=== PATIENT | female | born 1985 | race Caucasian/White ===

== ENCOUNTER 2017-05-12 05:43 | Inpatient (IN) | payer BC, MEDICAID ==
[~2017-05-12 05:43] MED LIST: Lactated Ringers 1,000 ML IV SCH; Sodium Chloride 0.9% 10 ML Syringe FLUSH PRN
[2017-05-12] MEDS ORDERED: Metoclopramide 10 MG/2 ML SDV IVPUSH ONE (06:00)
[2017-05-12] MEDS ORDERED: Citric Acid/Sodium Citrate Solution 30 ML Cup PO ONE (06:00)
[2017-05-12] MEDS ORDERED: Bupivacaine 0.5% 30 ML SDV ONE (06:48)
[2017-05-12] MEDS ORDERED: Morphine PF 1 MG/ML Amp ONE (06:54)
[2017-05-12] MEDS ORDERED: Oxytocin 10 Units/1 ML SDV ONE (07:20)
[2017-05-12] MEDS ORDERED: Ketorolac 30 MG/ML SDV ONE (07:20)
[2017-05-12] MEDS ORDERED: Ondansetron 4 MG/2 ML SDV ONE (07:20)
[2017-05-12] MEDS ORDERED: ceFAZolin 1 GM Vial ONE (07:20)
[2017-05-12] MEDS ORDERED: Lactated Ringers 2,000 ML ONE (07:20)
--- NOTE | 2017-05-12 07:28 | PCM.PREANE ---
Preanesthetic Assessment - Anesthesia/Transfusion/Family Hx Anesthesia History: Prior Anesthesia Reaction (nausea) Family History of Anesthesia Reaction: No Transfusion History: No Prior Transfusion(s) - Review of Systems General: No Symptoms Pulmonary: Other (cold since gi) Cardiovascular: No Symptoms Gastrointestinal: No Symptoms Neurological: No Symptoms Other: Reports: Diabetes (2) - Physical Assessment NPO Status Date: 05/11/17 NPO Status Time: 23:30 Pulse: 91 O2 Sat by Pulse Oximetry: 97 Respiratory Rate: 18 Blood Pressure: 117/77 Temperature: 98.1 F Vital Signs: Last Vital Signs Temp 98.1 F 05/12/17 06:41 Pulse 91 05/12/17 06:41 Resp 18 05/12/17 06:41 BP 117/77 05/12/17 06:41 Pulse Ox 97 05/12/17 06:41 Height: 5 ft 9 in Weight: 107.683 kg ASA Class: 2 Mental Status: Alert & Oriented x3 Airway Class: Mallampati = 1 Dentition: Reports: Normal Dentition Thyro-Mental Finger Breadths: 3 Mouth Opening Finger Breadths: 3 ROM/Head Extension: Full Lungs: Clear to Auscultation, Normal Respiratory Effort Cardiovascular: Regular Rate, Regular Rhythm - Lab Values: Laboratory Last Values WBC 9.64 K/mm3 (3.98-10.04) 05/09/17 15:47 RBC 4.77 M/mm3 (3.98-5.22) 05/09/17 15:47 Hgb 14.9 gm/L (11.2-15.7) 05/09/17 15:47 Hct 42.0 % (34.1-44.9) 05/09/17 15:47 MCV 88.1 fl (79.4-94.8) 05/09/17 15:47 MCH 31.2 pg (25.6-32.2) 05/09/17 15:47 MCHC 35.5 g/dl (32.2-35.5) 05/09/17 15:47 RDW Std Deviation 43.5 fL (36.4-46.3) 05/09/17 15:47 Plt Count 211 K/mm3 (182-369) 05/09/17 15:47 MPV 9.3 fl (9.4-12.3) L 05/09/17 15:47 Neut % (Auto) 64.7 % (34.0-71.1) 05/09/17 15:47 Lymph % (Auto) 25.4 % (19.3-51.7) 05/09/17 15:47 [place] % (Auto) 7.6 % (4.7-12.5) 05/09/17 15:47 Eos % (Auto) 1.9 (0.7-5.8) 05/09/17 15:47 Baso % (Auto) 0.3 % (0.1-1.2) 05/09/17 15:47 Neut # (Auto) 6.24 K/mm3 (1.56-6.13) H 05/09/17 15:47 Lymph # (Auto) 2.45 K/mm3 (1.18-3.74) 05/09/17 15:47 [place] # (Auto) 0.73 K/mm3 (0.24-0.36) H 05/09/17 15:47 Eos # (Auto) 0.18 K/mm3 (0.04-0.36) 05/09/17 15:47 Baso # (Auto) 0.03 K/mm3 (0.01-0.08) 05/09/17 15:47 Blood Type A POSITIVE 05/09/17 15:47 Gel Antibody Screen Negative 05/09/17 15:47 FBS 143 - Allergies Allergies/Adverse Reactions: Allergies Allergy/AdvReac Type Severity Reaction Status Date / Time clindamycin Allergy Rash Verified 05/12/17 06:16 - Blood Blood Available: No - Acknowledgements Anesthesia Type Planned: Spinal Pt an Appropriate Candidate for the Planned Anesthesia: Yes Alternatives and Risks of Anesthesia Discussed w Pt/Guardian: Yes Pt/Guardian Understands and Agrees with Anesthesia Plan: Yes PreAnesthesia Questionnaire HEENT History: Reports: Other (See Below) (glasses) Cardiovascular History: Reports: None Respiratory History: Reports: SOB Gastrointestinal History: Reports: None STATE MANAGER History: Reports: , Other (See Below) : 4 Para: 2 (39 weeks) Other OB/BYN History: previous c/s x 2 Musculoskeletal History: Reports: Back Pain, Chronic Endocrine/Metabolic History: Reports: Diabetes, Type II, Obesity/BMI 30+ - Past Surgical History HEENT Surgical History: Reports: Tonsillectomy Female Surgical History: Reports: Section Musculoskeletal Surgical History: Reports: Carpal Tunnel Other Musculoskeletal Surgeries/Procedures:: Laminectomy discectomy 2016, carpal tunnel 2003. - SUBSTANCE USE Smoking Status *Q: Former Smoker (quit 2 years ago) Second Hand Smoke Exposure: No Days Per Week of Alcohol Use: 0 Recreational Drug Use History: No - HOME MEDS Home Medications: Home Meds Albuterol [Proventil HFA] 1 - 2 puff INH Q4H PRN 05/12/17 [History] Budesonide/Formoterol Fumarate [Symbicort 160-4.5 Mcg Inhaler] 2 puff INH BID [History] Cyclobenzaprine [Flexeril] 5 mg PO TID 05/12/17 [History] Insulin Detemir [Levemir] 16 unit SUBCUT BEDTIME 05/12/17 [History] Vit W-Ca,Fe,FA(<1 mg) [ Vitamins] 1 tab PO DAILY 05/12/17 [ History] metFORMIN [Glucophage] 1,000 mg PO BID 05/12/17 [History] - CURRENT (IN HOUSE) MEDS Current Meds: Current Medications Cefazolin Sodium/Dextrose 2 gm (/ Premix) 50 mls @ 100 mls/hr IV ONETIME ONE Stop: 05/12/17 08:29 Lactated Ringer's (Ringers, Lactated) 1,000 mls @ 125 mls/hr IV ASDIRECTED [facility] Last Admin: 05/12/17 06:32 Dose: 125 mls/hr Oxytocin/Lactated Ringer's (Pitocin In Lr 10 Units/1,000 Ml) 10 unit in 1,000 mls @ 100 mls/hr IV ASDIRECTED [facility] Sodium Chloride (Saline Flush) 10 ml FLUSH ASDIRECTED PRN PRN Reason: Keep Vein Open Discontinued Medications Bupivacaine HCl (Marcaine 0.5%) Confirm Administered Dose 30 ml .ROUTE .STK-MED ONE Stop: 05/12/17 06:49 Cefazolin Sodium (Ancef) Confirm Administered Dose 2 gm .ROUTE .STK-MED ONE Stop: 05/12/17 07:21 Citric Acid/Sodium Citrate (Bicitra Solution) 30 ml PO ONETIME ONE Stop: 05/12/17 06:01 Lactated Ringer's (Ringers, Lactated) Confirm Administered Dose 2,000 mls @ as directed .ROUTE .STK-MED ONE Stop: 05/12/17 07:21 Ketorolac Tromethamine (Toradol) Confirm Administered Dose 30 mg .ROUTE .STK- MED ONE Stop: 05/12/17 07:21 Metoclopramide HCl (Reglan) 10 mg IVPUSH ONETIME ONE Stop: 05/12/17 06:01 Morphine Sulfate (Duramorph Pf) Confirm Administered Dose 1 mg .ROUTE .STK-MED ONE Stop: 05/12/17 06:55 Ondansetron HCl (Zofran) Confirm Administered Dose 4 mg .ROUTE .STK-MED ONE Stop: 05/12/17 07:21 Oxytocin (Pitocin) Confirm Administered Dose 10 unit .ROUTE .STK-MED ONE Stop: 05/12/17 07:21
[2017-05-12] MEDS ORDERED: ceFAZolin 2 GM in Premix Bag 1 BAG IV ONE (08:00)
[2017-05-12] MEDS ORDERED: Oxytocin/Lactated Ringers 10 UNIT/1,000 ML BAG IV SCH (08:00)
[2017-05-12] MEDS ORDERED: diphenhydrAMINE 50 MG/ML SDV IVPUSH PRN ×2 (08:03→10:24)
[2017-05-12] MEDS ORDERED: Meperidine PF 50 MG/ML Syringe IVPUSH PRN (08:03)
[2017-05-12] MEDS ORDERED: Ondansetron 4 MG/2 ML SDV IVPUSH PRN (08:03)
[2017-05-12] MEDS ORDERED: ePHEDrine 50 MG/ML SDV IVPUSH PRN ×2 (08:03→10:24)
[2017-05-12] MEDS ORDERED: fentaNYL 100 MCG/2 ML SDV IVPUSH PRN (08:03)
[2017-05-12] MEDS ORDERED: Albuterol 0.083% 2.5 MG/3 ML Neb Soln NEB ONE (08:03)
--- NOTE | 2017-05-12 09:08 | PCM.POSTAN ---
POST ANESTHESIA ASSESSMENT - MENTAL STATUS Mental Status: Alert, Oriented - VITAL SIGNS Pulse Rate: 75 SaO2: 96 Resp Rate: 12 Blood Pressure: 117/81 Temperature: 98 F - RESPIRATORY Respiratory Status: Respiratory Rate WNL, Airway Patent, O2 Saturation Stable, Supplemental Oxygen - CARDIOVASCULAR CV Status: Pulse Rate WNL, Blood Pressure Stable - GASTROINTESTINAL GI Status: No Symptoms - PAIN Pain Score: 0 - POST OP HYDRATION Hydration Status: Adequate & Stable
--- NOTE | 2017-05-12 09:19 | PCM.OPNOTE ---
- General Post-Op/Procedure Note Date of Surgery/Procedure: 05/12/17 Operative Procedure(s): repeat section Findings: Very thin lower uterine segment. Significant scarring of fascia and rectus muscles. Thick peritoneal scarring. Viable female. Weight 8#1oz, APGARS 6/6/7. Pre Op Diagnosis: Prior . Type II diabetes Post-Op Diagnosis: Same Anesthesia Technique: Spinal Primary Surgeon: Chelsey Reynoso Anesthesia Provider: Dragan Adan Mangle Tender: Mary Castle Pathology: none Fluid Replacement, Intraop: 2,100 Output, Urine Amount: 50 EBL in mLs: 700 Complications: None Condition: Good Free Text/Narrative:: The patient was taken to the operating room where epidural anesthesia was dosed to surgical levels without difficulty. The patient was prepped and draped in the usual sterile fashion in the dorsal supine position with a leftward tilt. A Pfannenstiel skin incision was made with the scalpel and carried through to the underlying layer of fascia. The fascia was incised in the midline and extended laterally using Mccauley scissors. Wendi clamps were used to elevate the superior aspect of the fascial incision, which was elevated, and the underlying rectus muscles were dissected off bluntly and using Mccauley scissors. Attention was then turned to the inferior aspect of the fascial incision, which in similar fashion was grasped with Wendi clamps, elevated, and the underlying rectus muscles were dissected off bluntly and using the mccauley. The rectus muscles were dissected in the midline. The peritoneum was entered bluntly; this incision was extended superiorly and inferiorly with good visualization of the bladder. The bladder blade was inserted. The vesicouterine peritoneum was identified and entered sharply using Metzenbaum scissors. This incision was extended laterally and the bladder flap was created digitally. The bladder blade was reinserted. The lower uterine segment was incised in a transverse fashion using the scalpel and with digital traction. Clear fluid was noted. The was subsequently delivered by flexing the head to the incision. Body and shoulders followed without difficulty. The cord was clamped and cut. The was subsequently handed to the awaiting community liaison officer whose presence had been requested.. The placenta was delivered spontaneously intact with a three-vessel cord noted. The uterus was exteriorized and cleared of all clots and debris. The uterine incision was repaired in 2 layers using 0 monocryl. Hemostasis was visualized. Hemostasis was visualized bilaterally. The uterus was returned to the abdomen. The uterine incision was reexamined and it was noted to be hemostatic. The pelvis was copiously irrigated. The fascia was closed with 1 PDS suture, and the skin was closed with 3-0 monocryl. Sponge, lap, and instrument counts were correct x2. The patient was stable at the completion of the procedure and was subsequently transferred to the recovery room in stable condition.
[2017-05-12] MEDS ORDERED: Docusate Sodium 100 MG Cap PO PRN (10:24)
[2017-05-12] MEDS ORDERED: Naloxone 0.4 MG/ML SDV IVPUSH PRN (10:24)
[2017-05-12] MEDS ORDERED: Lanolin 100% Cream 7 GM Tube TOP PRN (10:24)
[2017-05-12] MEDS ORDERED: Dextrose 5%-Lactated Ringers 1,000 ML IV SCH (10:24)
[2017-05-12] MEDS: Ketorolac 30 MG/ML SDV IVPUSH SCH ×2 (13:32→20:10)
[2017-05-12] MEDS ORDERED: INSULIN DETEMIR 100 UNIT/ML SUBCUT ONE (21:00)
[2017-05-12] MEDS: metFORMIN 500 MG Tab PO SCH (21:33)
[2017-05-13] MEDS: Ketorolac 30 MG/ML SDV IVPUSH SCH (02:00)
[2017-05-13] MEDS: Acetaminophen/oxyCODONE 325-5 MG Tab PO PRN ×3 (05:17→20:12)
--- NOTE | 2017-05-13 12:31 | PCM48HPAN ---
Post Anesthesia Note - EVALUATION WITHIN 48HRS OF ANESTHETIC Vital Signs in Normal Range: Yes Patient Participated in Evaluation: Yes Respiratory Function Stable: Yes Airway Patent: Yes Cardiovascular Function Stable: Yes Hydration Status Stable: Yes Pain Control Satisfactory: Yes Nausea and Vomiting Control Satisfactory: Yes Mental Status Recovered: Yes
--- NOTE | 2017-05-13 13:07 | PCM.PNPP ---
- General Info Date of Service: 05/13/17 Subjective Update: POD1 Doing well No complaints. Pain controlled. On 1/2 prior insulin. Functional Status: Reports: Pain Controlled - Review of Systems General: Reports: No Symptoms HEENT: Reports: No Symptoms Pulmonary: Reports: No Symptoms Cardiovascular: Reports: No Symptoms Gastrointestinal: Reports: No Symptoms Genitourinary: Reports: No Symptoms Musculoskeletal: Reports: No Symptoms Skin: Reports: No Symptoms Neurological: Reports: No Symptoms Psychiatric: Reports: No Symptoms - General Info Date of Service: 05/13/17 - Patient Data Vital Signs - Most Recent: Last Vital Signs Temp 36.2 C 05/13/17 11:10 Pulse 77 05/13/17 11:10 Resp 16 05/13/17 11:10 BP 117/72 05/13/17 11:10 Pulse Ox 95 05/13/17 11:10 Weight - Most Recent: 107.683 kg I&O - Last 24 Hours: Intake & Output 05/12/17 05/13/17 05/13/17 22:59 06:59 14:59 Intake Total 1750 Output Total 550 1000 300 Balance 1200 -1000 -300 Lab Results - Last 24 Hours: Laboratory Results - last 24 hr 05/12/17 05/13/17 Range/Units 16:06 06:40 WBC 9.27 (3.98-10.04) K/mm3 RBC 4.03 (3.98-5.22) M/mm3 Hgb 12.5 (11.2-15.7) gm/L Hct 36.4 (34.1-44.9) % MCV 90.3 (79.4-94.8) fl MCH 31.0 (25.6-32.2) pg MCHC 34.3 (32.2-35.5) g/dl RDW Std Deviation 44.2 (36.4-46.3) fL Plt Count 157 L (182-369) K/mm3 MPV 9.1 L (9.4-12.3) fl Neut % (Auto) 62.8 (34.0-71.1) % Lymph % (Auto) 25.7 (19.3-51.7) % [place] % (Auto) 9.0 (4.7-12.5) % Eos % (Auto) 2.0 (0.7-5.8) Baso % (Auto) 0.3 (0.1-1.2) % Neut # (Auto) 5.82 (1.56-6.13) K/mm3 Lymph # (Auto) 2.38 (1.18-3.74) K/mm3 [place] # (Auto) 0.83 H (0.24-0.36) K/mm3 Eos # (Auto) 0.19 (0.04-0.36) K/mm3 Baso # (Auto) 0.03 (0.01-0.08) K/mm3 POC Glucose 206 H (70-105) mg/dL Med Orders - Current: Current Medications Diphenhydramine HCl (Benadryl) 25 mg IVPUSH Q6H PRN PRN Reason: Itching or Nausea Docusate Sodium (Colace) 100 mg PO Q12H PRN PRN Reason: Constipation Emollient Ointment (Lansinoh Hpa) 0 gm TOP ASDIRECTED PRN PRN Reason: Sore Nipples Ephedrine Sulfate (Ephedrine Sulfate) 5 mg IVPUSH SEECOMMENT PRN PRN Reason: Other Ibuprofen (Motrin) 600 mg PO Q6H PRN PRN Reason: mild pain or fever Metformin HCl (Glucophage) 1,000 mg PO BEDTIME [facility] Last Admin: 05/12/17 21:33 Dose: 1,000 mg Naloxone HCl (Narcan) 0.1 mg IVPUSH SEECOMMENT PRN PRN Reason: Respiratory Depression Oxycodone/Acetaminophen (Percocet 325-5 Mg) 2 tab PO Q6H PRN PRN Reason: Pain (moderate 4-6) Last Admin: 05/13/17 05:17 Dose: 2 tab Discontinued Medications Albuterol (Proventil Neb Soln) 2.5 mg NEB ONETIME ONE Stop: 05/12/17 08:04 Last Admin: 05/12/17 09:38 Dose: Not Given Bupivacaine HCl (Marcaine 0.5%) Confirm Administered Dose 30 ml .ROUTE .STK-MED ONE Stop: 05/12/17 06:49 Last Admin: 05/12/17 08:14 Dose: 20 ml Cefazolin Sodium (Ancef) Confirm Administered Dose 2 gm .ROUTE .STK-MED ONE Stop: 05/12/17 07:21 Citric Acid/Sodium Citrate (Bicitra Solution) 30 ml PO ONETIME ONE Stop: 05/12/17 06:01 Last Admin: 05/12/17 07:35 Dose: 30 ml Diphenhydramine HCl (Benadryl) 25 mg IVPUSH Q6H PRN PRN Reason: pruritis Ephedrine Sulfate (Ephedrine Sulfate) 5 mg IVPUSH ASDIRECTED PRN PRN Reason: Hypotension Fentanyl (Sublimaze) 50 mcg IVPUSH Q5M PRN PRN Reason: Pain Cefazolin Sodium/Dextrose 2 gm (/ Premix) 50 mls @ 100 mls/hr IV ONETIME ONE Stop: 05/12/17 08:29 Last Admin: 05/12/17 22:09 Dose: Not Given Lactated Ringer's (Ringers, Lactated) 1,000 mls @ 125 mls/hr IV ASDIRECTED [facility] Last Admin: 05/12/17 06:32 Dose: 125 mls/hr Oxytocin/Lactated Ringer's (Pitocin In Lr 10 Units/1,000 Ml) 10 unit in 1,000 mls @ 100 mls/hr IV ASDIRECTED [facility] Lactated Ringer's (Ringers, Lactated) Confirm Administered Dose 2,000 mls @ as directed .ROUTE .STK-MED ONE Stop: 05/12/17 07:21 Dextrose/Lactated Ringer's (Dextrose 5%-Lactated Ringers) 1,000 mls @ 125 mls/ hr IV ASDIRECTED [facility] Stop: 05/12/17 18:23 Last Admin: 05/12/17 11:11 Dose: 125 mls/hr Insulin Detemir (Levemir) 0 unit SUBCUT ONETIME ONE Stop: 05/12/17 21:01 Last Admin: 05/12/17 21:34 Dose: 8 units Ketorolac Tromethamine (Toradol) Confirm Administered Dose 30 mg .ROUTE .STK- MED ONE Stop: 05/12/17 07:21 Ketorolac Tromethamine (Toradol) 30 mg IVPUSH Q6H [facility] Stop: 05/13/17 01:31 Last Admin: 05/13/17 02:00 Dose: 30 mg Meperidine HCl (Demerol) 12.5 mg IVPUSH ONETIME PRN PRN Reason: shivering Metoclopramide HCl (Reglan) 10 mg IVPUSH ONETIME ONE Stop: 05/12/17 06:01 Last Admin: 05/12/17 07:30 Dose: 10 mg Morphine Sulfate (Duramorph Pf) Confirm Administered Dose 1 mg .ROUTE .STK-MED ONE Stop: 05/12/17 06:55 Ondansetron HCl (Zofran) Confirm Administered Dose 4 mg .ROUTE .STK-MED ONE Stop: 05/12/17 07:21 Ondansetron HCl (Zofran) 4 mg IVPUSH ONETIME PRN PRN Reason: Nausea/Vomiting Oxytocin (Pitocin) Confirm Administered Dose 10 unit .ROUTE .STK-MED ONE Stop: 05/12/17 07:21 Sodium Chloride (Saline Flush) 10 ml FLUSH ASDIRECTED PRN PRN Reason: Keep Vein Open - Interaction Support Person: Significant Other - Recovery Exam Fundal Tone: Firm Fundal Level: At Umbilicus Fundal Placement: Midline Lochia Amount: Small Lochia Color: Rubra/Red Perineum Description: Intact, Minimal Bruising/Swelling Episiotomy/Laceration: None Bladder Status: Voiding Urinary Elimination: Indwelling Catheter - Exam General: Alert, Oriented HEENT: Pupils Equal Neck: Supple Lungs: Clear to Auscultation, Normal Respiratory Effort Cardiovascular: Regular Rate, Regular Rhythm GI/Abdominal Exam: Normal Bowel Sounds, Soft, Non-Tender, No Organomegaly, No Distention, No Abnormal Bruit, No Mass, Pelvis Stable Extremities: Normal Inspection, Normal Range of Motion, Non-Tender, No Pedal Edema, Normal Capillary Refill Skin: Warm, Dry, Intact Wound/Incisions: Healing Well Neurological: No New Focal Deficit Psy/Mental Status: Alert, Normal Affect, Normal Mood - Problem List Review Problem List Initiated/Reviewed/Updated: Yes - My Orders Last 24 Hours: My Active Orders 05/12/17 21:00 metFORMIN [Glucophage] 1,000 mg PO BEDTIME 05/13/17 07:30 Ibuprofen [Motrin] 600 mg PO Q6H PRN - Assessment Assessment:: POD1 Continue levamir and metformin Routine postop care Probable discharge tomorrow. Will sign out to Dr. Saleem this evening.
[2017-05-13] MEDS: metFORMIN 500 MG Tab PO SCH (20:12)
[2017-05-13] MEDS ORDERED: Insulin Detemir 100 Units/ML 3 ML Pen SUBCUT SCH (21:00)
[2017-05-14] MEDS: Ibuprofen 600 MG Tab PO PRN ×2 (01:00→07:42)
[2017-05-14] MEDS: Acetaminophen/oxyCODONE 325-5 MG Tab PO PRN ×2 (02:56→09:05)
[2017-05-14 05:50] VITALS: BP 124/73
[2017-05-14] MEDS ORDERED: metFORMIN 500 MG Tab PO SCH (07:00)
[2017-05-14] MEDS ORDERED: Lidocaine 1% 50 ML MDV ONE (09:39)
[2017-05-14] MEDS ORDERED: Lidocaine 1% 10 ML MDV INJECT ONE (10:08)
--- NOTE | 2017-05-14 11:57 | PCM.SN ---
- Free Text/Narrative Note: Post Operative Progress Note POD # 2 Subjective: Doing well overall. Ambulating without difficulty. Lochia minimal. Voiding without difficulty. Passing flatus. Tolerating , controlled without nausea or vomiting. Pain controlled with oral medications. Breast and bottle feeding with minimal difficulty. Objective: Vitals: Vital Signs - 24 hr 18 18 05/14/17 20:17 04:00 04:26 Temperature 36.7 C Temperature [ 36.6 C Temporal] Pulse, 79 79 Peripheral Respiratory 16 16 Rate Blood Pressure 123/72 124/73 O2 Sat by Pulse 95 92 L Oximetry Physical Exam General: Alert and oriented, no acute distress Lungs: Clear to auscultation bilaterally Heart: Regular rate and rhythm Abdomen: Soft, minimal appropriate tenderness, non-distended, fundus midline, nontender and below the umbilicus Incision: With small amount of bleeding near the right edge of incision measuring approximately 6-7 cm with separation of the incision. Healthy subcutaneous tissue with small amount of bleeding from this tissue, remainder of incision intact with Steri-Strips in place, small amount of bruising on the mons, no erythema or purulent discharge present. Extremities: 1+ edema in lower extremities to shins bilaterally Procedure: The patient was placed in supine position and the Steri-Strips were removed from the incision. The incision was then opened along the length of the incision where the incision had previously been . The total length that was able to be opened was approximately 6-7 cm. The open wound was examined and noted to have well-healing tissue. There is a small amount of bleeding from the subcutaneous tissue. [place] that this was due to failure of the suture for the separation and that this could be reapproximated using gila. The incision was then irrigated using sterile saline. The wound was then cleaned with Betadine wipes 3. The skin incision was then injected with 10 mL of 1% lidocaine for anesthesia. The incision was then closed using gila. ASSESSMENT: 32-year-old female G 4 P 3013 s/p repeat section POD #2 for history of section, complicated by type 2 diabetes controlled with Levemir and metformin PLAN: Doing well Breast and bottle feeding with minimal difficulty. Assist as needed Incision with separation as per above. Continue to keep clean and dry. Recommended for patient to be seen on 05/17/2017, with Dr. Reynoso for evaluation of incision for healing Lochia minimal. Continue to monitor for appropriate lochia. Continue routine post-operative care Patient to continue with Levemir 8 units at night and metformin. Anticipate discharge home today Abbe Saleem MD 11:56 AM 05/14/2017
--- NOTE | 2017-05-14 12:02 | PCM.DCSUM1 ---
Discharge Summary - Hospital Course Free Text/Narrative:: - General Post-Op/Procedure Note Date of Surgery/Procedure: 05/12/17 Operative Procedure(s): repeat section Findings: Very thin lower uterine segment. Significant scarring of fascia and rectus muscles. Thick peritoneal scarring. Viable female. Weight 8#1oz, APGARS 6/6/7. Pre Op Diagnosis: Prior . Type II diabetes Post-Op Diagnosis: Same Anesthesia Technique: Spinal Primary Surgeon: Chelsey Reynoso Anesthesia Provider: Dragan Adan Pickle Water Pump Operator: Mary Castle Pathology: none Fluid Replacement, Intraop: 2,100 Output, Urine Amount: 50 EBL in mLs: 700 Complications: None Condition: Good HPI Initial Comments: - General Post-Op/Procedure Note Date of Surgery/Procedure: 05/12/17 Operative Procedure(s): repeat section Findings: Very thin lower uterine segment. Significant scarring of fascia and rectus muscles. Thick peritoneal scarring. Viable female. Weight 8#1oz, APGARS 6/6/7. Pre Op Diagnosis: Prior . Type II diabetes Post-Op Diagnosis: Same Anesthesia Technique: Spinal Primary Surgeon: Chelsey Reynoso Anesthesia Provider: Dragan Adan Pickle Water Pump Operator: Mary Castle Pathology: none Fluid Replacement, Intraop: 2,100 Output, Urine Amount: 50 EBL in mLs: 700 Complications: None Condition: Good Brief History: - General Post-Op/Procedure Note. Date of Surgery/Procedure: 11/19. Operative Procedure(s): repeat section. Findings: Very thin lower uterine segment. Significant scarring of fascia and rectus muscles. Thick peritoneal scarring. Viable female. Weight 8#1oz, APGARS 6/6/7. Pre Op Diagnosis: Prior . Type II diabetes. Post-Op Diagnosis: Same. Anesthesia Technique: Spinal. Primary Surgeon: Chelsey Reynoso. Anesthesia Provider: Dragan Adan. Pickle Water Pump Operator: Mary Castle. Pathology: none. Fluid Replacement, Intraop: 2,100. Output, Urine Amount: 50. EBL in mLs : 700. Complications: None. Condition: Good - Discharge Data Discharge Date: 05/14/17 Discharge Disposition: Home, Self-Care 01 Condition: Good - Discharge Diagnosis/Problem(s) (1) 39 weeks gestation of SNOMED Code(s): 47651575 ICD Code: Z3A.39 - 39 WEEKS GESTATION OF Status: Acute (2) Status post repeat low transverse section SNOMED Code(s): 243449197, 853205594, 886704447 ICD Code: Z98.891 - HISTORY OF UTERINE SCAR FROM PREVIOUS SURGERY Status: Acute (3) Type 2 diabetes mellitus SNOMED Code(s): 90221412 ICD Code: E11.9 - TYPE 2 DIABETES MELLITUS WITHOUT COMPLICATIONS Status: Acute (4) Separation of wound with drainage, SNOMED Code(s): 748970532 ICD Code: O90.0 - DISRUPTION OF DELIVERY WOUND Status: Acute - Patient Summary/Data Operative Procedure(s) Performed: repeat section Complications: Right-sided incision wound separation with closure using gila prior to discharge Consults: None Hospital Course: Jolie Rueda was admitted for repeat section for a history of section. She was taken back to the OR and given spinal injection for anesthesia. She was given Ancef for antibiotic prophylaxis. She was prepped and draped in the normal fashion. On 05/12/2017 she had a delivery of a viable female . Apgars of 6, 6 & 7. Weight of 8 lbs 1 oz. She was closed in a normal fashion. There were no complications with the procedure. Please see the operative report for full details. Her post operative course was complicated by wound separation on POD #2. The incision appeared to be healing well and had a separation due to the suture knot coming loose or being cut. The tissue appeared to be healing well with good blood supply. The wound separation was cleansed with sterile saline and betadine and then closed with gila. Her pain was well controlled and she had minimal lochia. She was ambulating, tolerating a carb controlled diet and voiding normally. She was passing flatus and has not had a BM. She was breast and bottle feeding. She was afebrile and her hematocrit was 36.4 on POD #1. She desired to be discharged home on the morning of POD #2. Her blood type is A positive. She will follow up with Dr. Reynoso on 05/17/17 for evaluation of the incision. - Patient Instructions Diet: Diabetic Diet Activity: As Tolerated, No Lifting Over 20 Pounds Activity, Other: Nothing in the vagina for 6 weeks Driving: Do Not Drive (While taking narcotic medications) Showering/Bathing: May Shower, No Tub Bathing/Swimming (For 1 week) Wound/Incision Care: Keep Operative Site/Wound Site Clean and Dry Notify Provider of: Fever, Increased Pain, Swelling and Redness, Drainage, Nausea and/or Vomiting - Discharge Plan Prescriptions/Med Rec: Acetaminophen/oxyCODONE [Percocet 325-5 MG] 1 - 2 tab PO Q6H PRN #30 tablet PRN Reason: Pain Home Medications: Home Meds Albuterol [Proventil HFA] 1 - 2 puff INH Q4H PRN 05/12/17 [History] Budesonide/Formoterol Fumarate [Symbicort 160-4.5 Mcg Inhaler] 2 puff INH BID [History] Cyclobenzaprine [Flexeril] 5 mg PO TID 05/12/17 [History] Vit W-Ca,Fe,FA(<1 mg) [ Vitamins] 1 tab PO DAILY 05/12/17 [ History] metFORMIN [Glucophage] 1,000 mg PO BID 05/12/17 [History] Acetaminophen/oxyCODONE [Percocet 325-5 MG] 1 - 2 tab PO Q6H PRN #30 tablet 01/19 [Rx] Docusate Sodium [Colace] 100 mg PO Q12H PRN cap 05/14/17 [Rx] Ibuprofen [IJD: Ibuprofen] 600 mg PO Q6H PRN tablet 05/14/17 [Rx] Insulin Detemir [Levemir] 8 unit SUBCUT BEDTIME pen 05/14/17 [Rx] Lanolin [Lansinoh HPA] 1 applic TOP ASDIRECTED PRN tube 05/14/17 [Rx] Patient Handouts: , Delivery, Care After, Home Care Instructions for Mom, Eating Plan for Women Referrals: Chelsey Reynoso MD [Physician] - 05/17/17 (Follow-up with Dr. Reynoso on 05/17/2017 for wound evaluation and discussion of additional follow-up at that appointment.) - Discharge Summary/Plan Comment DC Time >30 min.: No - Patient Data Vitals - Most Recent: Last Vital Signs Temp 36.6 C 05/14/17 04:00 Pulse 79 02/10/18 04:26 Resp 16 05/14/17 04:26 BP 124/73 05/14/17 04:26 Pulse Ox 92 L 05/14/17 04:26 Weight - Most Recent: 107.683 kg I&O - Last 24 hours: Intake & Output 05/13/17 05/14/17 05/14/17 22:59 06:59 14:59 Intake Total 480 120 Balance 480 120 Med Orders - Current: Current Medications Diphenhydramine HCl (Benadryl) 25 mg IVPUSH Q6H PRN PRN Reason: Itching or Nausea Docusate Sodium (Colace) 100 mg PO Q12H PRN PRN Reason: Constipation Last Admin: 05/14/17 07:42 Dose: 100 mg Emollient Ointment (Lansinoh Hpa) 0 gm TOP ASDIRECTED PRN PRN Reason: Sore Nipples Ephedrine Sulfate (Ephedrine Sulfate) 5 mg IVPUSH SEECOMMENT PRN PRN Reason: Other Ibuprofen (Motrin) 600 mg PO Q6H PRN PRN Reason: mild pain or fever Last Admin: 05/14/17 07:42 Dose: 600 mg Insulin Detemir (Levemir) 8 unit SUBCUT BEDTIME [facility] Last Admin: 05/13/17 20:49 Dose: 8 tu Metformin HCl (Glucophage) 1,000 mg PO BEDTIME [facility] Last Admin: 05/13/17 20:12 Dose: 1,000 mg Metformin HCl (Glucophage) 1,000 mg PO WITHBREAKFAST [facility] Last Admin: 05/14/17 06:37 Dose: 1,000 mg Naloxone HCl (Narcan) 0.1 mg IVPUSH SEECOMMENT PRN PRN Reason: Respiratory Depression Oxycodone/Acetaminophen (Percocet 325-5 Mg) 2 tab PO Q6H PRN PRN Reason: Pain (moderate 4-6) Last Admin: 05/14/17 09:05 Dose: 2 tab Discontinued Medications Albuterol (Proventil Neb Soln) 2.5 mg NEB ONETIME ONE Stop: 05/12/17 08:04 Last Admin: 05/12/17 09:38 Dose: Not Given Bupivacaine HCl (Marcaine 0.5%) Confirm Administered Dose 30 ml .ROUTE .STK-MED ONE Stop: 05/12/17 06:49 Last Admin: 05/12/17 08:14 Dose: 20 ml Cefazolin Sodium (Ancef) Confirm Administered Dose 2 gm .ROUTE [facility] ONE Stop: 05/12/17 07:21 Citric Acid/Sodium Citrate (Bicitra Solution) 30 ml PO ONETIME ONE Stop: 05/12/17 06:01 Last Admin: 05/12/17 07:35 Dose: 30 ml Diphenhydramine HCl (Benadryl) 25 mg IVPUSH Q6H PRN PRN Reason: pruritis Ephedrine Sulfate (Ephedrine Sulfate) 5 mg IVPUSH ASDIRECTED PRN PRN Reason: Hypotension Fentanyl (Sublimaze) 50 mcg IVPUSH Q5M PRN PRN Reason: Pain Cefazolin Sodium/Dextrose 2 gm (/ Premix) 50 mls @ 100 mls/hr IV ONETIME ONE Stop: 05/12/17 08:29 Last Admin: 05/12/17 22:09 Dose: Not Given Lactated Ringer's (Ringers, Lactated) 1,000 mls @ 125 mls/hr IV ASDIRECTED [facility] Last Admin: 05/12/17 06:32 Dose: 125 mls/hr Oxytocin/Lactated Ringer's (Pitocin In Lr 10 Units/1,000 Ml) 10 unit in 1,000 mls @ 100 mls/hr IV ASDIRECTED [facility] Lactated Ringer's (Ringers, Lactated) Confirm Administered Dose 2,000 mls @ as directed .ROUTE [facility] ONE Stop: 05/12/17 07:21 Dextrose/Lactated Ringer's (Dextrose 5%-Lactated Ringers) 1,000 mls @ 125 mls/ hr IV ASDIRECTED [facility] Stop: 05/12/17 18:23 Last Admin: 05/12/17 11:11 Dose: 125 mls/hr Insulin Detemir (Levemir) 0 unit SUBCUT ONETIME ONE Stop: 05/12/17 21:01 Last Admin: 05/12/17 21:34 Dose: 8 units Ketorolac Tromethamine (Toradol) Confirm Administered Dose 30 mg .ROUTE .STK- MED ONE Stop: 05/12/17 07:21 Ketorolac Tromethamine (Toradol) 30 mg IVPUSH Q6H [facility] Stop: 05/13/17 01:31 Last Admin: 05/13/17 02:00 Dose: 30 mg Lidocaine HCl (Xylocaine 1%) Confirm Administered Dose 50 ml .ROUTE .STK-MED ONE Stop: 05/14/17 09:40 Last Admin: 05/14/17 10:11 Dose: 10 ml Lidocaine HCl (Xylocaine 1%) 10 ml INJECT ONETIME ONE Stop: 05/14/17 10:09 Last Admin: 05/14/17 10:12 Dose: Not Given Meperidine HCl (Demerol) 12.5 mg IVPUSH ONETIME PRN PRN Reason: shivering Metoclopramide HCl (Reglan) 10 mg IVPUSH ONETIME ONE Stop: 05/12/17 06:01 Last Admin: 05/12/17 07:30 Dose: 10 mg Morphine Sulfate (Duramorph Pf) Confirm Administered Dose 1 mg .ROUTE .STK-MED ONE Stop: 05/12/17 06:55 Ondansetron HCl (Zofran) Confirm Administered Dose 4 mg .ROUTE .STK-MED ONE Stop: 05/12/17 07:21 Ondansetron HCl (Zofran) 4 mg IVPUSH ONETIME PRN PRN Reason: Nausea/Vomiting Oxytocin (Pitocin) Confirm Administered Dose 10 unit .ROUTE .STK-MED ONE Stop: 05/12/17 07:21 Sodium Chloride (Saline Flush) 10 ml FLUSH ASDIRECTED PRN PRN Reason: Keep Vein Open *Q Meaningful Use (DIS) - VTE *Q VTE Criteria *Q: - Stroke *Q Stroke Criteria *Q: - AMI *Q AMI Criteria *Q:
== END 2017-05-14 12:01 | disposition home or self-care (01) | DRG 540 ==
LOC: JD.OB 05:43
PROVIDERS: ADMIT Obstetrics & Gynecology; ATTEND Obstetrics & Gynecology
PROC: 10D00Z1 Extraction of Products of Conception, Low, Open Approach (ICD-10-PCS; principal; 2017-05-12)
DX: O34.211 Maternal care for low transverse scar from previous cesarean delivery (principal); N85.8 Other specified noninflammatory disorders of uterus; O24.12 Pre-existing type 2 diabetes mellitus, in childbirth; E11.9 Type 2 diabetes mellitus without complications; Z3A.39 39 weeks gestation of pregnancy; Z37.0 Single live birth; Z88.1 Allergy status to other antibiotic agents; Z79.84 Long term (current) use of oral hypoglycemic drugs; Z87.891 Personal history of nicotine dependence; Z79.4 Long term (current) use of insulin
CPT/HCPCS: 01961; 36415; 82962; 85025; 86850; 86900; 86901; 94762; A9270-GY; J0690; J1815-GY; J1885; J2274; J2405; J2590; J2765; J7042; J7120

== ENCOUNTER 2019-06-24 11:11 | Emergency (ER) | payer BC, MEDICAID ==
--- NOTE | 2019-06-24 11:53 | EDM.PDOC ---
ED HPI GENERAL MEDICAL PROBLEM - General Chief Complaint: Respiratory Problem Stated Complaint: PNEUMONIA SENT BY WALK IN Time Seen by Provider: 06/24/19 11:53 - History of Present Illness INITIAL COMMENTS - FREE TEXT/NARRATIVE: 34-year-old female sent over from the walk-in clinic with worsening pneumonia. Was seen in clinic on the diagnosed with early pneumonia started on doxycycline and prednisone and is not getting better she is not certain what dose of prednisone she was started on the patient has a history of type 2 diabetes and her blood sugars are going up her usual blood sugars in the morning are around 100 this morning was 200 it was 407 at the walk-in clinic. She had a CBC done which showed an elevated white count of 15,000 range no manual differential was done on this but the automated segmented WBCs was elevated. She had no laboratory evidence of dehydration her basic metabolic panel was otherwise unremarkable other than a glucose. Repeat chest x-ray was done today which is consistent with a developing pneumonia. Chest Pain Score (Numeric/FACES): 9 - Related Data Allergies Allergy/AdvReac Type Severity Reaction Status Date / Time clindamycin Allergy Rash Verified 06/24/19 11:23 Home Meds: Home Meds Albuterol [Proventil HFA] 1 - 2 puff INH Q4H PRN 05/12/17 [History] Budesonide/Formoterol Fumarate [Symbicort 160-4.5 Mcg Inhaler] 2 puff INH BID [History] Cyclobenzaprine [Flexeril] 5 mg PO TID 05/12/17 [History] metFORMIN [Glucophage] 1,000 mg PO BID 05/12/17 [History] Acetaminophen/oxyCODONE [Percocet 325-5 MG] 1 - 2 tab PO Q6H PRN #30 tablet 01/19 [Rx] Ibuprofen [IJD: Ibuprofen] 600 mg PO Q6H PRN tablet 05/14/17 [Rx] Insulin Detemir [Levemir] 8 unit SUBCUT BEDTIME pen 05/14/17 [Rx] Cefuroxime Axetil [Ceftin] 500 mg PO Q12H #18 tablet 06/24/19 [Rx] Doxycycline [Vibramycin] 100 mg PO BID 06/24/19 [History] Multivitamin [Multivitamins] 1 cap PO DAILY 03/22/20 [History] Norgestimate-Ethinyl Estradiol [Ortho Tri-Cyclen 28 Tablet] 1 tab PO DAILY 06/23 [History] Semaglutide [Ozempic] 1 mg SQ ASDIRECTED 06/24/19 [History] Sertraline [Zoloft] 25 mg PO DAILY 06/24/19 [History] Past Medical History HEENT History: Reports: Impaired Vision, Other (See Below) Cardiovascular History: Reports: None Respiratory History: Reports: SOB, Other (See Below) Other Respiratory History: PNA Gastrointestinal History: Reports: None 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 Social & Family History - Family History Family Medical History: Noncontributory - Tobacco Use Smoking Status *Q: Former Smoker Used Tobacco, but Quit: Yes Month/Year Tobacco Last Used: 2017 - Caffeine Use Caffeine Use: Reports: Coffee - Recreational Drug Use Recreational Drug Use: No ED ROS GENERAL - Review of Systems Review Of Systems: See Below Constitutional: Reports: Fever HEENT: Reports: No Symptoms Respiratory: Reports: Cough, Sputum Cardiovascular: Reports: No Symptoms Endocrine: Reports: No Symptoms GI/Abdominal: Reports: No Symptoms : Reports: No Symptoms ED EXAM, GENERAL - Physical Exam Exam: See Below Exam Limited By: No Limitations General Appearance: Alert, No Apparent Distress Eye Exam: Bilateral Eye: Normal Inspection Ears: Normal External Exam, Normal Canal, Hearing Grossly Normal, Normal TMs Nose: Normal Inspection, Normal Mucosa, No Blood Throat/Mouth: Normal Inspection, Normal Lips, Normal Teeth, Normal Gums, Normal Oropharynx, Normal Voice, No Airway Compromise Head: Atraumatic, Normocephalic Neck: Normal Inspection, Supple, Non-Tender, Full Range of Motion. No: Lymphadenopathy (L), Lymphadenopathy (R) Respiratory/Chest: No Respiratory Distress, Lungs Clear, Normal Breath Sounds Cardiovascular: Regular Rate, Rhythm, No Edema, No Murmur GI/Abdominal: Normal Bowel Sounds, Soft, Non-Tender Back Exam: Normal Inspection, Full Range of Motion. No: CVA Tenderness (L), CVA Tenderness (R) Extremities: Normal Inspection, Non-Tender Neurological: Alert, Oriented, Normal Cognition Psychiatric: Normal Affect, Normal Mood Course - Vital Signs Last Recorded V/S: Last Vital Signs Temp 36.2 C 06/24/19 11:20 Pulse 95 06/24/19 11:20 Resp 19 06/24/19 11:20 BP 129/95 H 06/24/19 11:20 Pulse Ox 97 06/24/19 11:20 - Orders/Labs/Meds Orders: Active Orders 24 hr Category Date Time Status CULTURE BLOOD [BC] Stat Lab 06/24/19 12:30 Received CULTURE BLOOD [BC] Stat Lab 06/24/19 12:38 Received cefTRIAXone [Rocephin] 2 gm Med 06/24/19 12:45 Active Sodium Chloride 0.9% [Normal Saline] 100 ml IV Q24H Blood Culture x2 Reflex Set [OM.PC] Stat Oth 06/24/19 12:14 Ordered Isolation [COMM] Routine Oth 06/24/19 12:17 Ordered Medication Orders Ceftriaxone Sodium 2 gm/ (Sodium Chloride) 100 mls @ 200 mls/hr IV Q24H JAMAL Last Admin: 06/24/19 12:46 Dose: 200 mls/hr Labs: Laboratory Tests 06/24/19 Range/Units 12:10 Urine Color Yellow (Yellow) Urine Appearance Clear (Clear) Urine pH 6.0 (5.0-8.0) Ur Specific [place] > or = 1.030 (1.005-1.030) Urine Protein Negative (Negative) Urine Glucose (UA) 2+ H (Negative) Urine Ketones 1+ H (Negative) Urine Occult Blood Negative (Negative) Urine Nitrite Negative (Negative) Urine Bilirubin Negative (Negative) Urine Urobilinogen 0.2 (0.2-1.0) Ur Leukocyte Esterase Negative (Negative) Urine RBC Not seen (0-5) /hpf Urine WBC Not seen (0-5) /hpf Ur Squamous Epith Cells 0-5 (0-5) /hpf Urine Bacteria Not seen (FEW) /hpf Urine Mucus Few (FEW) /hpf Meds: Medications Generic Name Dose Route Start Last Admin Trade Name Bereket PRN Reason Stop Dose Admin Ceftriaxone Sodium 2 gm/ 100 mls @ 200 mls/hr 06/24/19 12:45 06/24/19 12:46 Sodium Chloride IV 200 mls/hr Q24H JAMAL Administration Discontinued Medications Generic Name Dose Route Start Last Admin Trade Name Bereket PRN Reason Stop Dose Admin Ceftriaxone Sodium 2 gm/ 100 mls @ 200 mls/hr 06/24/19 12:15 06/24/19 12:40 Sodium Chloride IV 06/24/19 12:44 Not Given ONETIME ONE - Re-Assessments/Exams Free Text/Narrative Re-Assessment/Exam: 06/24/19 12:32 Patient will be started on a liter of NS and given 2 g of Rocephin and will be treated as an outpatient with Ceftin 500 mg twice daily starting tomorrow she has finished her prednisone which was 20 mg twice a day and being off this should help her glycemic control. Blood cultures have been obtained prior to the antibiotic change. We are also waiting on influenza screen. 06/24/19 14:39 Patient is doing well at this point we will proceed with our plans discharge on Ceftin with close follow-up in the clinic. Departure - Departure Time of Disposition: 14:39 Disposition: Home, Self-Care 01 Clinical Impression: Community acquired pneumonia - Discharge Information Prescriptions: Cefuroxime Axetil [Ceftin] 500 mg PO Q12H #18 tablet Referrals: Lorie Haji PA-C [Primary Care Provider] - Forms: ED Department Discharge Additional Instructions: Return to the emergency room with any questions problems or worsening symptoms. Finish off your doxycycline you will be started on a second antibiotic, Ceftin, or cefuroxime take 1 twice daily starting tomorrow. Follow-up in the clinic on Tuesday or Tuesday for recheck Sepsis Event Note - Evaluation Sepsis Screening Result: Possible Sepsis Risk - Focused Exam Vital Signs: Vital Signs Temp Pulse Resp BP Pulse Ox 06/24/19 11:20 36.2 C 95 19 129/95 H 97 Date Exam was Performed: 06/24/19 Time Exam was Performed: 14:39 - My Orders Last 24 Hours: My Active Orders 06/24/19 12:14 Blood Culture x2 Reflex Set [OM.PC] Stat 06/24/19 12:17 Isolation [COMM] Routine 06/24/19 12:30 CULTURE BLOOD [BC] Stat 06/24/19 12:38 CULTURE BLOOD [BC] Stat 06/24/19 12:45 cefTRIAXone [Rocephin] 2 gm Sodium Chloride 0.9% [Normal Saline] 100 ml IV Q24H - Assessment/Plan Last 24 Hours: My Active Orders 06/24/19 12:14 Blood Culture x2 Reflex Set [OM.PC] Stat 06/24/19 12:17 Isolation [COMM] Routine 06/24/19 12:30 CULTURE BLOOD [BC] Stat 06/24/19 12:38 CULTURE BLOOD [BC] Stat 06/24/19 12:45 cefTRIAXone [Rocephin] 2 gm Sodium Chloride 0.9% [Normal Saline] 100 ml IV Q24H
[2019-06-24] MEDS ORDERED: cefTRIAXone 2 GM in Sodium Chloride 0.9% 100 ML IV ONE (12:15)
[2019-06-24] MEDS ORDERED: cefTRIAXone 2 GM in Sodium Chloride 0.9% 100 ML IV SCH (12:45)
[2019-06-24 15:02] VITALS: BP 111/82; PULSE 96
== END 2019-06-24 15:00 | disposition home or self-care (01) ==
LOC: JD.ED 11:11
DX: J18.9 Pneumonia, unspecified organism (principal); Z87.891 Personal history of nicotine dependence; E11.9 Type 2 diabetes mellitus without complications; E66.9 Obesity, unspecified; Z79.4 Long term (current) use of insulin; Z79.899 Other long term (current) drug therapy; Z88.1 Allergy status to other antibiotic agents
CPT/HCPCS: 36415; 81001; 87040; 87804; 96365; 99283; J0696; J7050